=== PATIENT | female | born 1995 | race Hispanic/Latino ===

== ENCOUNTER 2019-04-13 01:53 | Emergency (ER) | payer SELFPAY ==
[2019-04-13 03:00] LABS: #Eosinphils 0.6 thou/uL (0.0-0.7); #Lymphocytes 2.7 thou/uL (1.20-3.40); #Monocytes 0.7 thou/uL (0.11-0.59); #Neutrophils 3.4 thou/uL (1.40-6.50); %Basophils 0.6 % (0.0-1.0); %Eosinophils 7.8 % (0.0-10.0); %Lymphocytes 36.2 % (21.0-51.0); %Monocytes 9.8 % (0.0-10.0); %Neutrophils 45.7 % (42.0-75.0); Hemoglobin 12.8 g/dL (12.0-16.0); Mean Corpuscular HGB CONC 33.4 g/dL (32.0-36.0); Mean Corpuscular Hemoglobin 30.2 pg (27.0-31.0); Mean Corpuscular Volume 90.5 fL (78.0-98.0); Mean Platelet Volume 8.5 fL (7.4-10.4); Platelet Count 258 thou/uL (130-400); RBC Distribution Width 11.8 % (11.5-14.5); Red Blood Cell (RBC) Count 4.25 mill/uL (4.20-5.40); White Blood Cell (WBC) Count 7.5 thou/uL (4.8-10.8)
[2019-04-13 03:12] LABS: BHCG - Serum Negative (NEGATIVE); Pregs Control Background? CLEAR/WHITE (CLR/WHITE); Pregs Control Bar Appear? YES (CONTROL BAR)
[2019-04-13 03:24] LABS: ALT (SGPT) 15 U/L (8-55); AST (SGOT) 16 U/L (5-34); Albumin 4.2 g/dL (3.5-5.0); Alkaline Phosphatase 66 U/L (40-150); Anion Gap 9 mmol/L (10-20); BUN (Urea Nitrogen) 11 mg/dL (7.0-18.7); Bilirubin, Total 0.3 mg/dL (0.2-1.2); Calc. Creatinine Clearance 0 mL/min (70-130); Calcium 9.2 mg/dL (7.8-10.44); Carbon Dioxide 25 mmol/L (22-29); Chloride 106 mmol/L (98-107); Estimated GFR-MDRD Greater than 90; Globulin 2.9 g/dL (2.4-3.5); Glucose 93 mg/dL (70-105); Lipase 24 U/L (8-78); Potassium 3.4 mmol/L (3.5-5.1); Protein, Total 7.1 g/dL (6.0-8.3); Sodium 137 mmol/L (136-145)
[2019-04-13] MEDS ORDERED: cefTRIAXone\\ROCEPHIN 250 MG VIAL ONE (03:31)
[2019-04-13] MEDS ORDERED: Ketorolac Tromethamine 30 MG/ML VIAL ONE (03:31)
[2019-04-13] MEDS ORDERED: Lidocaine 1% PF 5 ML VIAL ONE (03:31)
[2019-04-13 03:41] LABS: Bilirubin Negative (Negative); Blood, Urine Negative (Negative); Clarity Extra Turbid (Clear); Glucose, Urine (Dipstick) Normal (Negative); Leukocyte 500 Leu/uL (Negative); Nitrite Negative (Negative); Protein, Urine (Dipstick) 20 mg/dL (Neg-Trace); RBC/HPF 0-3 HPF (0-3); Urobilinogen Normal mg/dL (Less than 2)
--- NOTE | 2019-04-13 07:02 | ULT ---
TRANSABDOMINAL PELVIC ULTRASOUND: Date: 04/13/19 INDICATION: Pelvic pain with nausea and diarrhea. TECHNIQUE: Baca scale, color Doppler, and spectral Doppler obtained of the pelvis via the transabdominal approac h only. FINDINGS: The uterus measures 8.9 x 4.5 x 6.5 cm. The endometrial stripe measures 1.4 cm. The left ovary measures 2.6 x 2.9 x 2.4 cm. The right ovary measures 2.8 x 3.8 x 2.9 cm. There is nor mal flow to both ovaries. There is a nabothian cyst seen within the cervix. IMPRESSION: 1. Endometrial stripe of 1.4 cm is within normal limits for a premenopausal female. Recommend correl ation with phase of menstruation. 2. Small nabothian cyst. POS: BH
[2019-04-15 00:29] LABS: Chlamydia by PCR DETECTED (NotDetected); GC by PCR Not Detected (NotDetected)
== END 2019-04-13 04:28 | disposition home or self-care (01) ==
LOC: ERS 01:53
DX: N73.9 Female pelvic inflammatory disease, unspecified (principal)
CPT/HCPCS: 36415; 76856; 80053; 81003; 81015; 83690; 84703; 85025; 87480; 87491; 87510; 87591; 87660; 93976; 96372; 96374; J0696; J1885; J2001

== ENCOUNTER 2019-09-08 00:48 | Emergency (ER) | payer SELFPAY ==
[2019-09-08] MEDS ORDERED: Dexamethasone 10 MG/ML VIAL ONE (01:16)
== END 2019-09-08 01:17 | disposition home or self-care (01) ==
LOC: ERS 00:48
DX: J02.9 Acute pharyngitis, unspecified (principal)
CPT/HCPCS: 99282; J1100

== ENCOUNTER 2020-09-18 01:35 | Day surgery (SDC) | payer OTHER ==
[2020-09-18 02:05] VITALS: BMI 27.8
--- NOTE | 2020-09-18 03:14 | PDOC.LDHP ---
Labor and Delivery H&P Chief complaint: abdominal pain HPI: Patient is 25 yo @ 25.1 wks presenting for abdominal pain. She reports that today she was taking a bath and her pain was severe-8/10. She reports that she has the pain q2-3 days and describes it as "hard". She does not know of anything that makes it worse-it seems to occur randomly. The only thing that makes it better is rest and time. The episodes typically last for ~10 minutes. She has never had pain like this in her other pregnancies. She has not tried taking Tylenol. Endorses good FM, Denies VB, Vaginal LOF Current gestational age (weeks): 25 (25.1 weeks) Due date: 12/31/20 Dating criteria: first trimester ultrasound Grav: 3 Para: 2 OB History Details: 2 Term SVDs in [facility] per patient Current complications: none Abnormal US findings: Yes ("low placenta" per patient) Past Medical History: denies Current medications: pre-huey vitamins Previous surgical history: none Allergies/Adverse Reactions: Allergies Allergy/AdvReac Type Severity Reaction Status Date / Time No Known Allergies Allergy Verified 09/18/20 02:05 Social history: none - Physical Exam Vital signs reviewed and normal: yes General: NAD, resting Heart: RRR Lungs: nonlabored breathing Abdomen: NTTP Extremeties: no edema FHT: variability present (reactive strip) [place] contractions every: none - OB Labs Blood type: unknown RH: unknown Antibody Screen: unknown HIV: unknown RPR: unknown HEPSAg: unknown 1 hour GCT: unknown - Assessment Patient is 25 yo @ 25.1 wks presenting for abdominal pain. - Plan -: Abdominal pain - Likely ligament pain vs muscle spasms - Discussed safe pain management techniques including Tylenol, ice, and heat - No alarming sx associated with pain Will dc home to f/u with regularly scheduled PNC with recommendations for pain as above Discussed plan with attending Dr. Mendoza. Addendum - Attending - Attending Attestation Date/Time: 09/18/20 0705 I personally evaluated the patient and discussed the management with Dr. Galvez I agree with the History, Examination, Assessment and Plan documented above with any addition or exceptions noted below. Abdomen soft gravid, minimal tenderness in llq with deviation of the uterus to the right, NNTP. fht reactive and cat 1
== END 2020-09-18 03:20 | disposition home health service (06) ==
LOC: L&D/OP 01:35
PROVIDERS: ATTEND Obstetrics & Gynecology
DX: O99.891 Other specified diseases and conditions complicating pregnancy (principal); R10.814 Left lower quadrant abdominal tenderness; O44.42 Low lying placenta NOS or without hemorrhage, second trimester; Z3A.25 25 weeks gestation of pregnancy

== ENCOUNTER 2021-01-28 05:26 | Emergency (ER) | payer MEDICAID ==
[2021-01-28] MEDS ORDERED: Morphine 4 MG/ML VIAL ONE (06:06)
[2021-01-28] MEDS ORDERED: Dexamethasone 10 MG/ML VIAL ONE (06:06)
[2021-01-28 06:24] LABS: #Eosinphils 0.6 thou/uL (0.0-0.7); #Lymphocytes 1.7 thou/uL (1.20-3.40); #Monocytes 0.6 thou/uL (0.11-0.59); #Neutrophils 4.5 thou/uL (1.40-6.50); %Basophils 0.1 % (0.0-1.0); %Eosinophils 7.6 % (0.0-10.0); %Lymphocytes 23.6 % (21.0-51.0); %Monocytes 7.7 % (0.0-10.0); %Neutrophils 60.9 % (42.0-75.0); Hemoglobin 11.8 g/dL (12.0-16.0); Mean Corpuscular HGB CONC 31.2 g/dL (32.0-36.0); Mean Corpuscular Hemoglobin 23.4 pg (27.0-31.0); Mean Corpuscular Volume 74.8 fL (78.0-98.0); Mean Platelet Volume 11.9 fL (7.4-10.4); Platelet Count 210 thou/uL (130-400); RBC Distribution Width 19.5 % (11.5-14.5); Red Blood Cell (RBC) Count 5.06 mill/uL (4.20-5.40); White Blood Cell (WBC) Count 7.4 thou/uL (4.8-10.8)
[2021-01-28 06:39] LABS: ALT (SGPT) 28 U/L (8-55); AST (SGOT) 21 U/L (5-34); Albumin 3.8 g/dL (3.5-5.0); Alkaline Phosphatase 133 U/L (40-110); Anion Gap 14 mmol/L (10-20); BUN (Urea Nitrogen) 15 mg/dL (7.0-18.7); Bilirubin, Total 0.3 mg/dL (0.2-1.2); Calc. Creatinine Clearance 0 mL/min (70-130); Calcium 9.3 mg/dL (7.8-10.44); Carbon Dioxide 21 mmol/L (22-29); Chloride 111 mmol/L (98-107); Globulin 3.4 g/dL (2.4-3.5); Glucose 121 mg/dL (70-105); Potassium 3.6 mmol/L (3.5-5.1); Protein, Total 7.2 g/dL (6.0-8.3); Sodium 142 mmol/L (136-145)
[2021-01-28] MEDS ORDERED: Iopamidol 370 76% 100 ML VIAL ONE (13:01)
== END 2021-01-28 06:56 | disposition home or self-care (01) ==
LOC: ERS 05:26
DX: J02.9 Acute pharyngitis, unspecified (principal); R25.2 Cramp and spasm
CPT/HCPCS: 70491; 80053; 85025; 96374; 96375; J1100; J2270; Q9967

== ENCOUNTER 2021-07-05 16:30 | Emergency (ER) | payer SELFPAY ==
[2021-07-05 18:36] LABS: #Eosinphils 0.3 thou/uL (0.0-0.7); #Lymphocytes 2.5 thou/uL (1.20-3.40); #Monocytes 0.7 thou/uL (0.11-0.59); %Basophils 0.4 % (0.0-1.0); %Eosinophils 3.7 % (0.0-10.0); %Lymphocytes 29.2 % (21.0-51.0); %Monocytes 8.1 % (0.0-10.0); %Neutrophils 58.6 % (42.0-75.0); Hemoglobin 14.4 g/dL (12.0-16.0); Mean Corpuscular Volume 84.4 fL (78.0-98.0); Mean Platelet Volume 10.3 fL (7.4-10.4); Platelet Count 122 thou/uL (130-400); RBC Distribution Width 14.2 % (11.5-14.5); Red Blood Cell (RBC) Count 5.32 mill/uL (4.20-5.40); White Blood Cell (WBC) Count 8.5 thou/uL (4.8-10.8)
[2021-07-05 18:54] LABS: Bilirubin Negative (Negative); Blood, Urine 3+ (Negative); Clarity Turbid (Clear); Glucose, Urine (Dipstick) Normal (Negative); Ketone, Urine Negative (Negative); Leukocyte 75 Leu/uL (Negative); Nitrite Negative (Negative); Protein, Urine (Dipstick) 20 mg/dL (Neg-Trace); RBC/HPF Greater than 50 HPF (0-3); Specific Gravity, Urine 1.028 (1.002-1.036); Urobilinogen Normal mg/dL (Less than 2)
[2021-07-05] MEDS ORDERED: Acetaminophen 325 MG TAB ONE (18:54)
[2021-07-05 18:55] LABS: Bacteria/HPF 1+ HPF (None Seen)
[2021-07-05 18:57] LABS: ALT (SGPT) 51 U/L (8-55); AST (SGOT) 26 U/L (5-34); Albumin 4.2 g/dL (3.5-5.0); Alkaline Phosphatase 85 U/L (40-110); Anion Gap 10 mmol/L (10-20); BUN (Urea Nitrogen) 10 mg/dL (7.0-18.7); Bilirubin, Total 0.4 mg/dL (0.2-1.2); Calc. Creatinine Clearance 0 mL/min (70-130); Calcium 9.4 mg/dL (7.8-10.44); Carbon Dioxide 24 mmol/L (22-29); Chloride 106 mmol/L (98-107); Globulin 3.4 g/dL (2.4-3.5); Glucose 87 mg/dL (70-105); Potassium 3.8 mmol/L (3.5-5.1); Protein, Total 7.6 g/dL (6.0-8.3); Sodium 136 mmol/L (136-145)
[2021-07-07 20:40] LABS: Chlamydia by PCR Inconclusive (NotDetected); GC by PCR Inconclusive (NotDetected)
== END 2021-07-05 21:05 | disposition home or self-care (01) ==
LOC: ERS 16:30
DX: O02.81 Inappropriate change in quantitative human chorionic gonadotropin (hCG) in early pregnancy (principal)
CPT/HCPCS: 36415; 76856; 80053; 81003; 81015; 84702; 85025; 86900; 86901; 87086; 87480; 87491; 87510; 87591; 87660

== ENCOUNTER 2023-01-13 02:17 | Emergency (ER) | payer SELFPAY ==
[2023-01-13 03:20] LABS: #Basophils 0.1 thou/uL (0.0-0.2); #Eosinphils 0.4 thou/uL (0.0-0.7); #Lymphocytes 1.4 thou/uL (1.20-3.40); #Monocytes 0.7 thou/uL (0.11-0.59); #Neutrophils 9.8 thou/uL (1.40-6.50); %Basophils 0.6 % (0.0-1.0); %Lymphocytes 11.5 % (21.0-51.0); %Monocytes 5.7 % (0.0-10.0); %Neutrophils 79.2 % (42.0-75.0); Mean Corpuscular HGB CONC 33.4 g/dL (32.0-36.0); Mean Corpuscular Hemoglobin 29.4 pg (27.0-31.0); Mean Platelet Volume 9.4 fL (7.4-10.4); Platelet Count 257 10x3/uL (130-400); RBC Distribution Width 15.6 % (11.5-14.5); Red Blood Cell (RBC) Count 4.76 mill/uL (4.20-5.40); White Blood Cell (WBC) Count 12.4 10x3/uL (4.8-10.8)
[2023-01-13 03:53] LABS: ALT (SGPT) 42 U/L (8-55); AST (SGOT) 51 U/L (5-34); Albumin 4.6 g/dL (3.5-5.0); Alkaline Phosphatase 80 U/L (40-110); Anion Gap 11 mmol/L (10-20); BUN (Urea Nitrogen) 16 mg/dL (7.0-18.7); Bilirubin, Total 0.5 mg/dL (0.2-1.2); Calc. Creatinine Clearance 0 mL/min (70-130); Calcium 9.2 mg/dL (7.8-10.44); Carbon Dioxide 23 mmol/L (22-29); Chloride 106 mmol/L (98-107); Estimated GFR 115; Globulin 3.4 g/dL (2.4-3.5); Glucose 99 mg/dL (70-105); Lipase 29 U/L (8-78); Potassium 3.7 mmol/L (3.5-5.1); Sodium 136 mmol/L (136-145)
[2023-01-13 04:04] LABS: Bacteria/HPF None Seen HPF (None Seen); Bilirubin Negative (Negative); Blood, Urine Negative (Negative); Clarity Extra Turbid (Clear); Glucose, Urine (Dipstick) Normal (Negative); Ketone, Urine Negative (Negative); Leukocyte 25 Leu/uL (Negative); Nitrite Negative (Negative); Protein, Urine (Dipstick) Negative (Neg-Trace); RBC/HPF 0-3 HPF (0-3); Specific Gravity, Urine 1.022 (1.002-1.036); Urobilinogen Normal mg/dL (Less than 2); WBC/HPF None Seen HPF (0-3); pH, Urine 7.5 (5.0-9.0)
[2023-01-13 04:07] LABS: Pregnancy Test - Urine (BHCG) Negative (Negative); Pregu Control Background? CLEAR/WHITE (CLR/WHITE); Pregu Control Bar Appear? YES (CONTROL BAR); Specific Gravity 1.022 (1.002-1.036)
[2023-01-13] MEDS ORDERED: Mag-Al 1200 mg/1200 mg/30 ML UDCUP ONE (05:37)
== END 2023-01-13 05:42 | disposition home or self-care (01) ==
LOC: ERS 02:17
DX: R10.13 Epigastric pain (principal); D72.829 Elevated white blood cell count, unspecified
CPT/HCPCS: 36415; 80053; 81003; 81015; 81025; 83690; 85025; 93005